=== PATIENT | male | born 1955 | race Caucasian/White ===

== ENCOUNTER → 2021-11-11 | Day surgery (SDC) | payer MEDICARE, OTHER ==
[~2021-11-11] VITALS: Ht 177.8 cm; Wt 73.5 kg
[~2021-11-11] MED LIST: ATORVASTATIN CA20 MG PO; LISINOPRIL2.5 MG PO; METFORMIN HCL500 M3 PO
[2021-11-11 07:01] LABS: HCT 40.7 % (42.0-52.0); HGB 14.1 g/dl (13.2-18.0); MCH 30.8 pg (25.0-31.0); MCHC 34.6 g/dL (32.0-36.0); MCV 88.9 fL (78.0-100.0); MPV 9.2 fL (6.0-9.5); RBC 4.58 M/uL (4.70-6.00); RDW 11.8 % (11.5-14.0); WBC 5.8 K/uL (4.0-10.5)
[2021-11-11 07:31] LABS: ALBUMIN 3.9 g/dL (3.4-5.0); BILIRUBIN - TOTAL 0.5 mg/dL (0.2-1.0); BUN/CREAT RATIO (CALC) 18.2 RATIO; CREATININE 0.99 mg/dL (0.67-1.17); GLOBULIN (CALCULATION) 2.9 g/dL; POTASSIUM 3.9 mmol/L (3.5-5.1); TOTAL PROTEIN 6.8 g/dL (6.4-8.2)
== END | disposition home or self-care (01) ==
LOC: FAS 11-10 07:00
PROVIDERS: Orthopaedic Surgery
DX: S83.231A Complex tear of medial meniscus, current injury, right knee, initial encounter (principal); M17.11 Unilateral primary osteoarthritis, right knee; Z79.84 Long term (current) use of oral hypoglycemic drugs
CPT/HCPCS: 36415; 71045; 80053; 93005; J2250; J2704; J3010; J7120